=== PATIENT | female | born 1970 | race Caucasian/White ===

== ENCOUNTER 2024-06-25 15:53 | Emergency (ER) | payer SELFPAY ==
[~2024-06-25] VITALS: Ht 162.6 cm; Wt 50.0 kg
[2024-06-25 16:01] VITALS: BP 137/58; PULSE 90; RESP 16; TEMP 37.4; O2SAT 100
[2024-06-25] MEDS: HYDROCODONE/ACETAMINOPHEN 5/325MG TABLET PO NR (20:38)
[2024-06-25] MEDS: AMOXICILLIN/POTASSIUM CLAVULANATE 875/125MG TAB PO NR (20:38)
[2024-06-25] MEDS: BACITRACIN ZINC OINT UDPKT TOP ONE (21:05)
[2024-06-25] MEDS: LIDOCAINE HCL/PF 1% 10 MG/ML 5ML VIAL INFIL ONE (21:05)
[2024-06-25] MEDS ORDERED: NAPR-681 PO (21:28)
[2024-06-25] MEDS ORDERED: HYDR-4001 MT (21:28)
[2024-06-25] MEDS ORDERED: AMOX1TAB16 MT (21:28)
== END 2024-06-25 21:44 | disposition home or self-care (01) ==
LOC: ER 15:53
DX: S91.012A Laceration without foreign body, left ankle, initial encounter (principal); S81.852A Open bite, left lower leg, initial encounter; E11.9 Type 2 diabetes mellitus without complications; Z79.899 Other long term (current) drug therapy; W54.0XXA Bitten by dog, initial encounter; Y93.89 Activity, other specified; Y92.89 Other specified places as the place of occurrence of the external cause; Y99.8 Other external cause status
CPT/HCPCS: 99283; 73610; 12002; J2003